=== PATIENT | male | born 1960 | race Caucasian/White ===

== ENCOUNTER 2023-06-09 09:05 | Outpatient (CLI) | payer BC, SELFPAY | END 2023-06-09 09:06 | disposition home or self-care (01) | LOC: NFLDREF 06-23 09:04 | PROVIDERS: PCP Internal Medicine; Referring Provider Internal Medicine; Visit Provider Internal Medicine | DX: I10 Essential (primary) hypertension (principal) | CPT/HCPCS: 80048 ==

== ENCOUNTER 2024-03-08 15:00 | Outpatient (RCR) | payer BC, SELFPAY | END 2024-07-06 23:59 | disposition home or self-care (01) | PROVIDERS: PCP Internal Medicine; Visit Provider Urology | DX: M62.9 Disorder of muscle, unspecified (principal); R35.1 Nocturia; R27.8 Other lack of coordination; R35.0 Frequency of micturition; R34 Anuria and oliguria; Z51.89 Encounter for other specified aftercare | CPT/HCPCS: 97110; 97140; 97162; 97535 ==